=== PATIENT | male | born 1975 | race African-American/Black ===

== ENCOUNTER → 2017-08-05 | Outpatient (CLI) | payer OTHER ==
[2017-08-05 09:20] LABS: CHCM 33.1; HCT 45.9 % (39.0-53.0); HDW 2.22; HGB 14.7 gm/dL (13.0-17.5); MCH 27.2 pg (25.0-35.0); Mean Platelet Volume 8.1; RBC 5.39 m/uL (4.30-5.90); RDW 14.4 % (11.5-15.5); WBC 7.3 k/uL (3.8-10.6)
[2017-08-05 09:35] LABS: ALT 32 U/L (21-72); AST 21 U/L (17-59); Alkaline Phosphatase 53 U/L (38-126); Anion Gap 9 mmol/L; Blood Urea Nitrogen 9 mg/dL (9-20); Calcium 9.3 mg/dL (8.4-10.2); Carbon Dioxide 27 mmol/L (22-30); Chloride 109 mmol/L (98-107); Cholesterol 107 mg/dL (<200); Glucose 82 mg/dL (74-99); HDL Cholesterol 32 mg/dL (40-60); Non-African American GFR(MDRD) >60 (>60 ml/min/1.73 sqM); Sodium 145 mmol/L (137-145); Total Bilirubin 0.6 mg/dL (0.2-1.3); Total Protein 6.3 g/dL (6.3-8.2)
[2017-08-05 10:02] LABS: Appearance,Urine Clear (Clear); Bilirubin,Urine Negative (Negative); Glucose,Urine (UA) Negative (Negative); Ketones,Urine Trace (Negative); Leukocyte Esterase,Urine Negative (Negative); Nitrite,Urine Negative (Negative); Protein,Urine Trace (Negative); Specific Gravity,Urine 1.028 (1.001-1.035); UA Billing (MACRO vs. MICRO) CHEM
== END | disposition home or self-care (01) ==
LOC: LABWHC1 08:59
PROVIDERS: ATTEND Internal Medicine
DX: Z00.00 Encounter for general adult medical examination without abnormal findings (principal); K21.0 Gastro-esophageal reflux disease with esophagitis; R35.0 Frequency of micturition; R63.4 Abnormal weight loss; R53.82 Chronic fatigue, unspecified
CPT/HCPCS: 36415; 80053; 80061; 81003; 84439; 84443; 85027

== ENCOUNTER 2017-09-28 11:25 | Emergency (ER) | payer OTHER ==
--- NOTE | 2017-09-28 11:53 | ED ---
General Adult HPI - General Chief complaint: Back Pain/Injury Stated complaint: Side pain Time Seen by Provider: 09/28/17 11:43 Source: patient, RN notes reviewed Mode of arrival: ambulatory Limitations: no limitations - History of Present Illness Initial comments: Patient is a pleasant 41-year-old male presenting to the emergency Department with right lateral back pain. Symptoms started a couple of days ago. Patient is unclear if he may have did something at work or if he could've slept the wrong way. Discomfort is positional. No difficulty in breathing. Patient does notice if he sneezes or coughs that symptoms do worsen. Patient is not having much sneezing or coughing otherwise. Fever. No trauma. No history of similar symptoms previously. - Related Data Home Medications Medication Instructions Recorded Confirmed Ibuprofen [Motrin Ib] 400 mg PO Q6H PRN 09/28/17 09/28/17 Naproxen Sodium [Aleve] 440 mg PO DAILY PRN 09/28/17 09/28/17 Previous Rx's Medication Instructions Recorded Cyclobenzaprine [Flexeril] 10 mg PO TID PRN #12 tablet 09/28/17 Allergies Allergy/AdvReac Type Severity Reaction Status Date / Time No Known Allergies Allergy Verified 09/28/17 12:01 Review of Systems ROS Statement: Those systems with pertinent positive or pertinent negative responses have been documented in the HPI. ROS Other: All systems not noted in ROS Statement are negative. Constitutional: Denies: fever Eyes: Denies: eye pain ENT: Denies: ear pain Respiratory: Denies: cough Cardiovascular: Denies: chest pain Endocrine: Denies: fatigue Gastrointestinal: Denies: abdominal pain Genitourinary: Denies: dysuria Musculoskeletal: Denies: arthralgia Skin: Denies: rash Neurological: Denies: weakness Past Medical History Additional Past Medical History / Comment(s): Hypoglycemia History of Any Multi-Drug Resistant Organisms: None Reported Past Surgical History: No Surgical Hx Reported Past Psychological History: No Psychological Hx Reported Smoking Status: Current every day smoker Past Alcohol Use History: Occasional Past Drug Use History: Marijuana General Exam Limitations: no limitations General appearance: alert, in no apparent distress Head exam: Present: atraumatic Eye exam: Present: normal appearance Neck exam: Present: normal inspection Respiratory exam: Present: normal lung sounds bilaterally. Absent: chest wall tenderness Cardiovascular Exam: Present: regular rate, normal rhythm GI/Abdominal exam: Present: soft. Absent: tenderness Extremities exam: Present: normal inspection Back exam: Present: tenderness (Mild tenderness right lateral mid back below and lateral to the scapula, above the CVA region). Absent: CVA tenderness (R), vertebral tenderness Expanded 1 - area of discomfort Neurological exam: Present: alert Psychiatric exam: Present: normal affect, normal mood Skin exam: Present: normal color Course Vital Signs 09/28/17 11:35 Temperature 98.5 F Pulse Rate 84 Respiratory 18 Rate Blood Pressure 132/83 O2 Sat by Pulse 99 Oximetry Medical Decision Making - Medical Decision Making Patient updated on results and plan. Patient would like to go back to work. Patient is receptive to prescription for muscle relaxers. - Radiology Data Radiology results: image reviewed (Chest x-ray shows no acute process.) Disposition Clinical Impression: Back strain Disposition: HOME SELF-CARE Condition: Stable Instructions: Thoracic Back Strain (ED) Additional Instructions: Please follow-up to primary care physician in the next couple days for recheck. Return for difficulty breathing, fevers, change or worsening symptoms or other concerns. Prescriptions: Cyclobenzaprine [Flexeril] 10 mg PO TID PRN #12 tablet PRN Reason: Pain Referrals: Elias Olivo MD [Primary Care Provider] - 1-2 days Time of Disposition: 12:22
--- NOTE | 2017-09-28 12:14 | XR ---
EXAMINATION TYPE: XR chest 2V DATE OF EXAM: 09/28/2017 HISTORY: Right thoracic pain. REFERENCE: Previous study dated 07/26/2017. FINDINGS: The lungs are clear. Pleural space are clear. The heart is not enlarged. IMPRESSION: NORMAL CHEST.
[2017-09-28 12:43] VITALS: BP 138/72; PULSE 76; RESP 16; TEMP 97.8
== END 2017-09-28 12:51 | disposition home or self-care (01) ==
LOC: EC 11:25
DX: S29.012A Strain of muscle and tendon of back wall of thorax, initial encounter (principal); F17.200 Nicotine dependence, unspecified, uncomplicated
CPT/HCPCS: 71046; 99283

== ENCOUNTER → 2018-10-13 | Outpatient (CLI) | payer SELFPAY ==
--- NOTE | 2018-10-13 09:35 | XR ---
EXAMINATION TYPE: XR chest 2V DATE OF EXAM: 10/13/2018 COMPARISON: 09/28/2017 TECHNIQUE: PA and lateral views submitted. HISTORY: Annual physical FINDINGS: The lungs are clear and there is no pneumothorax, pleural effusion, or focal pneumonia. Subtle pect us deformity stable. Biapical pleural thickening. IMPRESSION: 1. No acute process.
[2018-10-13 09:41] LABS: HCT 47.7 % (39.0-53.0); HGB 15.6 gm/dL (13.0-17.5); MCH 27.2 pg (25.0-35.0); MCHC 32.6 g/dL (31.0-37.0); MCV 83.2 fL (80.0-100.0); Mean Platelet Volume 7.2; Platelet Count 292 k/uL (150-450); RBC 5.74 m/uL (4.30-5.90); RDW 13.8 % (11.5-15.5); WBC 8.4 k/uL (3.8-10.6)
[2018-10-13 09:44] LABS: Appearance,Urine Clear (Clear); Bilirubin,Urine Negative (Negative); Blood,Urine Negative (Negative); Color,Urine Light Red; Glucose,Urine (UA) Negative (Negative); Ketones,Urine Trace (Negative); Leukocyte Esterase,Urine Negative (Negative); Nitrite,Urine Negative (Negative); Protein,Urine Trace (Negative); Specific Gravity,Urine 1.032 (1.001-1.035)
[2018-10-13 18:34] LABS: Albumin 4.5 g/dL (3.80-4.90); Albumin/Globulin Ratio 2.14 (1.60-3.17); Anion Gap 4.1 mmol/L (4.00-12.00); Calcium 9.6 mg/dL (8.7-10.3); Carbon Dioxide 30.9 mmol/L (21.6-31.8); Globulin 2.1 g/dL (1.6-3.3); LDL Cholesterol,Calculated 88.8 mg/dL (0.0-131.0); Potassium 4.2 mmol/L (3.5-5.5); Total Bilirubin 0.6 mg/dL (0.3-1.2); Total Protein 6.6 g/dL (6.2-8.2); VLDL Calculation 21.2 mg/dL (5.00-40.00)
[2018-10-13 18:36] LABS: T4, Free (Free Thyroxine) 1.2 ng/dL (0.80-1.80)
[2018-10-13 20:42] LABS: Hemoglobin A1C 4.9 % (4.0-6.0)
== END ==
LOC: LABWHC1 08:26
PROVIDERS: ATTEND Internal Medicine
DX: Z00.00 Encounter for general adult medical examination without abnormal findings (principal); E16.2 Hypoglycemia, unspecified; K21.0 Gastro-esophageal reflux disease with esophagitis; R05 Cough; R53.82 Chronic fatigue, unspecified; R35.0 Frequency of micturition
CPT/HCPCS: 36415; 71046; 80053; 80061; 81003; 82272; 83036; 84439; 84443; 85027

== ENCOUNTER → 2018-11-20 | Outpatient (CLI) | payer BC ==
--- NOTE | 2018-11-20 13:49 | US ---
EXAMINATION TYPE: US abdomen complete DATE OF EXAM: 11/20/2018 COMPARISON: NONE CLINICAL HISTORY: R10.13 Epigastric pain. EXAM MEASUREMENTS: Liver Length: 11.1 cm Gallbladder Wall: 0.2 cm CBD: 0.2 cm Spleen: 8.8 cm Right Kidney: 10.0 x 4.4 x 5.2 cm Left Kidney: 10.5 x 4.8 x 5.0 cm Pancreas: Tail obscured by overlying bowel gas Liver: wnl Gallbladder: wnl Evidence for sonographic Lucas's sign: CBD: wnl Spleen: wnl Right Kidney: Inferior pole obscured by overlying bowel gas Left Kidney: Superior pole obscured by overlying bowel gas Upper IVC: wnl Abd Aorta: bifurcation obscured by overlying bowel gas The liver is homogenous. The intrahepatic portion of the IVC and visualized abdominal aorta are with in normal limits. There is no evidence of cholelithiasis. Common bile duct is unremarkable. The vi sualized portions of the pancreas are homogenous. The spleen is unremarkable. Kidneys are symmetric and free of hydronephrosis. No renal lesions are seen. IMPRESSION: No suspicious acute finding is seen to account for patient's symptoms of epigastric pain.
== END ==
LOC: RADUSWWP 10:26
PROVIDERS: ATTEND Internal Medicine
DX: R10.13 Epigastric pain (principal); R42 Dizziness and giddiness; E27.40 Unspecified adrenocortical insufficiency; E16.2 Hypoglycemia, unspecified
CPT/HCPCS: 76700